=== PATIENT | female | born 1995 | race Caucasian/White ===

== ENCOUNTER 2016-10-18 22:57 | Emergency (ER) | payer OTHER ==
[~2016-10-18] VITALS: Ht 165.1 cm; Wt 76.5 kg
[~2016-10-18 22:57] MED LIST: CALC300T34 PO; IBUP800T25 PO; PERCOCET PO; PREN1TAB17 BU; PREN1TAB17 PO
[2016-10-18 23:19] VITALS: Ht 165.1 cm; Wt 76.5 kg
[2016-10-19] MEDS ORDERED: DIPHENHYDRAMINE 50 MG INJ IM ONE (02:00)
[2016-10-19] MEDS ORDERED: METHYLPREDNISOLONE 125 MG INJ IM ONE (02:00)
[2016-10-19] MEDS ORDERED: BEN25 PO (02:51)
[2016-10-19] MEDS ORDERED: FAMO-18 PO (02:52)
[2016-10-19] MEDS ORDERED: HC1C30 TOP (02:52)
[2016-10-19] MEDS ORDERED: PRED20TA PO (02:52)
[2016-10-19 03:02] VITALS: BP 133/63; PULSE 83; RESP 20; TEMP 97.9
--- NOTE | 2016-10-20 17:45 | ERD ---
ER Documentation Chief Complaint Date/Time DATE: 10/20/16 TIME: 17:42 Chief Complaint hives on whole body, 4 hours, unknown exposure HPI This patient is a 21-year-old female with no significant medical history presenting to the emergency department for rash which began about 4 hours ago after eating a new type of peanut that she has not eaten in the past. The patient has never had allergy to peanuts previously. The patient states her rash broke out around her waistline, underneath her armpits, and on her bilateral lower extremities. She describes the rash is very itchy. She has taken no medications at home for relief of her symptoms. She denies shortness of breath, wheezing, chest pain, or other significant symptoms at this time. ROS All systems reviewed and are negative except as per history of present illness. Medications Home Meds Active Scripts Famotidine* (Pepcid*) 20 Mg Tablet, 20 MG PO BID for 4 Days, #8 TAB Prov:NOEL ISAAC PA-C 10/19/16 Prednisone* (Prednisone*) 20 Mg Tab, 40 MG PO DAILY for 3 Days, #6 TAB Prov:NOEL ISAAC PA-C 10/19/16 Hydrocortisone* Topical (Hydrocortisone* Topical) 1%-28.35 Gm Cream..g., 1 APPLIC TOP Q6 Y for ITCHING, #1 TUB Prov:NOEL ISAAC PA-C 10/19/16 Diphenhydramine Hcl* (Benadryl*) 25 Mg Cap, 25 MG PO Q6, #20 CAP Prov:NOEL ISAAC PA-C 10/19/16 Oxycodone Hcl/Acetaminophen (Percocet) 1 Tab Tab, 2 TAB PO Q4H Y for PAIN LEVEL 6-10, #30 TAB 0 Refills Prov:CHAGO COFFEY MD 07/29/15 Ibuprofen* (Ibuprofen*) 800 Mg Tab, 800 MG PO Q8, #20 0 Refills Prov:CHAGO COFFEY MD 07/29/15 Reported Medications Calcium Carbonate (Tums EX) 1 Tab.chew Tab.chew, 1 TAB.CHEW PO 05/20/13 Vit-Iron Fumarate-FA ( Tablet) 1 Each Tablet, 1 EACH PO 9/13/13 Vit-Iron Fumarate-FA ( Tablet) 1 Each Tablet, 1 EACH BU DAILY 05/17/13 Allergies Allergies: Coded Allergies: No Known Allergy (Unverified , 04/22/12) PMhx/Soc Medical and Surgical Hx: pt denies Medical Hx History of Surgery: Yes (c section) Anesthesia Reaction: No Hx Neurological Disorder: No Hx Respiratory Disorders: No Hx Cardiac Disorders: No Hx Psychiatric Problems: No Hx Miscellaneous Medical Probl: No Hx Alcohol Use: No Hx Substance Use: No Hx Tobacco Use: No FmHx Noncontributory for chief complaint Physical Exam Vitals Vital Signs Date Time Temp Pulse Resp B/P Pulse Ox O2 Delivery O2 Flow Rate FiO2 10/19/16 03:02 97.9 83 20 133/63 100 Room Air 10/18/16 23:19 98.3 85 17 125/78 100 Physical Exam INITIAL VITAL SIGNS: Reviewed by me. GENERAL: Alert and interactive. No acute distress. HEAD: Head is normocephalic and atraumatic. EYES: EOMI. No scleral icterus. No conjunctival injection. ENT: Moist mucosa. NECK: Supple. Full range of motion. RESPIRATORY: Normal respiratory effort. Clear breath sounds bilaterally. No wheezing, rales, or rhonchi. No signs of respiratory distress or retractions. CV: Regular rate and rhythm. Normal S1 S2. No S3 or S4. No murmurs. ABDOMEN: Soft, non-distended, non-tender. No guarding. No rebound. No masses. EXTREMITIES: No deformity. SKIN: Macular papular rash present to the belt line area and bilateral upper portion of the lower extremities. NEUROLOGIC: Alert and oriented x 4. Speech is normal. Moves all extremities equally. No motor or sensory deficits noted. Results 24 hrs Current Medications Medications (Trade) Dose Ordered Sig/Joe Route PRN Reason Start Time Stop Time Status Last Admin Dose Admin Methylprednisolone Sodium Succinate (Solu-Medrol) 125 mg ONCE ONCE IM 10/19/16 02:00 10/19/16 03:07 DC 10/19/16 02:18 Diphenhydramine HCl (Benadryl) 25 mg ONCE ONCE IM 10/19/16 02:00 10/19/16 03:07 DC 10/19/16 02:18 Procedures/MDM 21-year-old female presents secondary to complaints of allergic rash. On physical examination the patient's vitals are within normal limits. I have very low suspicion for any respiratory distress is a patient is 100% on room air. On physical examination of the lungs there is no wheezing or signs of respiratory distress. The patient was treated in the department with Benadryl and Solu-Medrol and her rash improved rapidly. The patient was feeling much improved after treatment. The patient is stable for outpatient management with a prescription for prednisone, and diphenhydramine. The patient understands the diagnosis and plan. The patient was advised to return to the emergency department immediately for any new or worsening symptoms and she understands. I do not believe that epinephrine was indicated at the time due to no respiratory distress and only moderate urticarial rash. The patient understands the plan and diagnosis and she was stable prior to discharge. Departure Diagnosis: Primary Impression: Allergic reaction Additional Impression: Rash and nonspecific skin eruption Condition: Stable Patient Instructions: First Aid: Allergic Reactions, Self-Care for Skin Rashes Additional Instructions: Follow-up with your primary care physician within 1 week. Return to the emergency department immediately should you have any new or worsening symptoms, uncontrolled fevers, or other unexplained symptoms. Take all medications as directed. NOEL ISAAC PA-C Oct 20, 2016 17:45
== END 2016-10-19 03:07 | disposition home or self-care (01) ==
LOC: FTE 22:57 → E/R 10-19 03:07
DX: R21 Rash and other nonspecific skin eruption (principal); T78.1XXA Other adverse food reactions, not elsewhere classified, initial encounter
CPT/HCPCS: 96372; J1200; J2930; Z7502

== ENCOUNTER 2018-10-21 11:57 | Outpatient (CLI) | payer OTHER ==
[~2018-10-21] VITALS: Ht 165.1 cm; Wt 79.9 kg
[~2018-10-21 11:57] MED LIST changes: -CALC300T34 PO; -IBUP800T25 PO; -PERCOCET PO; -PREN1TAB17 PO
[2018-10-21 13:07] VITALS: BP 113/84; PULSE 72; RESP 20; Ht 165.1 cm; Wt 79.9 kg
[2018-10-21] MEDS ORDERED: PNV11TAB PO (13:09)
--- NOTE | 2018-10-21 17:02 | TRIAGE ---
OB Triage Datetime Report Generated by CPN: 10/21/2018 17:02 Datetime: 10/21/2018 17:00 Stage of : OB Triage Maternal Assessment Level of Consciousness: Fully Conscious Labor Evaluation Frequency: NONE Monitor Mode: External Resting Tone [place]: Relaxed Heart Rate FHR Baseline Rate: 135 Monitor Mode: External US Variability: Moderate 6-25 bpm Accelerations: 15X15 Decelerations: None Category: Category I Pain Assessment Pain Scale: 0 Pain Goal: 3 Vaginal Exam Membrane Status: Intact Vaginal Bleeding: None Datetime: 10/21/2018 15:30 Labor Evaluation Frequency: 0 Monitor Mode: External Resting Tone [place]: Relaxed Heart Rate FHR Baseline Rate: 130 Monitor Mode: External US FHR Baseline Changes: No Baseline Change Variability: Moderate 6-25 bpm Accelerations: 15X15 Decelerations: None Category: Category I Datetime: 10/21/2018 13:11 Labor Evaluation Frequency: 0 Monitor Mode: External Resting Tone [place]: Relaxed Heart Rate FHR Baseline Rate: 125 Monitor Mode: External US FHR Baseline Changes: No Baseline Change Variability: Moderate 6-25 bpm Accelerations: 15X15 Decelerations: None Category: Category I Pain Assessment Pain Scale: 0 Pain Presence: None/Denies Vaginal Exam Membrane Status: Intact Datetime: 10/21/2018 12:56 Stage of : OB Triage Assessment Type: Triage Time of Arrival: 10/21/2018 12:56 EGA: 33.1 Arrived By: Ambulatory Arrived From: Home Chief Complaint: heart decels Movement: Present Contractions: Denies/Absent Rupture of Membranes: Denies Vaginal Bleeding: None Vaginal Discharge: Denies Recent Sexual Intercouse: Denies Abdominal Trauma: Not Applicable Provider Notified: miri Initial Plan: nst Maternal Assessment Level of Consciousness: Fully Conscious DTR's/Clonus: DTRs 2+; No Clonus Headache: Denies Blurred Vision: No Respiratory Effort: Unlabored; Regular Rhythm; Equal Expansion Breath Sounds, Left: Clear and Equal Breath Sounds, Right: Clear and Equal Nausea/Vomiting: Denies RUQ Epigastric Pain: Denies Lower Extremities Edema: None Degree: None Upper Extremities Edema: None Facial Edema: None Temperature Route: Oral Fall Risk Assessment History of Falling: (0) No Secondary Diagnosis: (0) No Ambulatory Aid: (0) Bedrest/Nurse Assist IV Therapy: (0) No Gait: (0) Normal/Bedrest/Immobile Mental Status: (0) Oriented to Own Ability Fall Score: 0 Fall Risk Score Definition: No Risk: No action required Monitor Mode: External Monitor Mode: External US Pain Assessment Pain Scale: 0 Pain Presence: None/Denies Pain Type: N/A Pain Goal: 0 Pain Relief Measures: Comfort Measures Datetime: 10/18/2018 12:53 Labor Evaluation Frequency: 4/2hours Monitor Mode: External Duration (sec)7149: 50-70 Quality: Mild Pattern: Normal: <= 5 Contractions in 10 Minutes Resting Tone [place]: Relaxed Heart Rate FHR Baseline Rate: 135 Monitor Mode: External US FHR Baseline Changes: No Baseline Change Variability: Moderate 6-25 bpm Accelerations: 15X15 Decelerations: None Category: Category I Datetime: 10/18/2018 10:52 Fall Score: 0 Fall Risk Score Definition: No Risk: No action required Datetime: 10/18/2018 10:51 EGA: 32.5 Time Provider Notified: 10/18/2018 12:47 Provider Notified: dr miri Datetime: 10/14/2018 10:34 EGA: 32.1 Fall Score: 0 Fall Risk Score Definition: No Risk: No action required
--- NOTE | 2018-10-28 12:45 | PN ---
Triage Information Date/Time October 21, 2018 Reason for visit: Concern for Deceleration? presence of nuchal cord x 2 noted during us . for evaluation and monitoring Weeks of Gestation 33 weeks and 1 day /Para 4 para 2 Diabetes: none Hypertention: none Additional information 23-year-old with IUP at 33 weeks and 1 day here today for testing due to nuchal cord x2 and her ultrasound. She was referred by primary OB for testing. She denies any leaking of fluid, vaginal bleeding decreased movement or any other complaint. Patient is a status post x2 Objective Heart Rate: 130's Heart Rate Comments Category 1 Exam General appearance: Alert and oriented x4 does not appear to be in any acute distress Abdomen: Soft, gravid, fundal height consistent with gestational age Results/Medications Imaging Results PROCEDURE: US OB biophysical profile. CLINICAL INDICATION: decreased movements, PTL TECHNIQUE: Multiple sonographic images of the pelvis were obtained. The images were reviewed on a PACS workstation. COMPARISON: US PELVIS 10/18/2018 FINDINGS: There is a single live intrauterine gestation. Cardiac activity is present with 132 beats per minute. There is a breech presentation. The placenta is posterior. There is no evidence of placental abruption. There is a normal amount of amniotic fluid with an ROGER = 13.1 cm. Biophysical profile: movement 2/2 tone 2/2. breathing 2/2 ROGER 2/2 Total 8/8 RPTAT: AA . IMPRESSION: Normal biophysical profile. .PROCEDURE: US OB. CLINICAL INDICATION: Size and dates TECHNIQUE: Multiple sonographic images of the pelvis and gravid uterus were obtained. The images were reviewed on a PACS workstation. COMPARISON: No prior studies are available for comparison. FINDINGS: Gestation: Single live intrauterine gestation. Cardiac activity: 154 beats per minute. Presentation: Breech Placenta: Location: Posterior Appearance: No previa or abruption. Measurements: BPD = 8.4 cm, 33 weeks and 5 days HC = 30.3 cm, 33 weeks and 5 days AC = 29.3 cm, 33 weeks and 2 days FL = 6.4 cm, 33 weeks and 1 day Gestational Age: AUA estimated gestational age: 33 weeks 3 days LMP estimated gestational age: 33 weeks 1 day AUA estimated date of delivery: 12/06/18 The EFW = 2166 g, 46.2%ile based on LMP age. RPTAT: AA Disposition: Discharge Assessment/Plan IUP at 33 weeks and 1 day testing reassuring No obstetrical issue at this point History of x2 She will be scheduled by primary OB office for repeat at term Strict labor precautions kick count and follow-up with primary OB office discussed with the patient All questions were answered to patient with satisfaction Patient verbalized understanding. CANDIDA DUKES MD Oct 28, 2018 12:45
== END 2018-10-21 17:10 | disposition home or self-care (01) ==
LOC: OBT 11:57 → L-D 11:57 → OBT 17:10
PROVIDERS: ATTEND Obstetrics & Gynecology
DX: O36.8130 Decreased fetal movements, third trimester, not applicable or unspecified (principal); Z3A.33 33 weeks gestation of pregnancy
CPT/HCPCS: 76815; 76818; Z7500; G0463

== ENCOUNTER 2018-10-26 11:22 | Outpatient (CLI) | payer OTHER ==
[~2018-10-26] VITALS: Ht 165.1 cm; Wt 80.3 kg
[~2018-10-26 11:22] MED LIST changes: +PNV11TAB PO
[2018-10-26 11:47] VITALS: Ht 165.1 cm; Wt 80.3 kg
[2018-10-26 12:02] VITALS: BP 115/63; PULSE 90; RESP 18
--- NOTE | 2018-10-26 14:29 | PN ---
Triage Information Date/Time Reason for visit: Sent by Provider for NST BPP because of Cord around he neck Weeks of Gestation 33+ /Para n/a Diabetes: none Hypertention: none Objective Vital Signs Date Temp Pulse Resp B/P (MAP) Pulse Ox O2 O2 Flow FiO2 Time Delivery Rate 10/26/18 98.6 90 18 115/63 Room Air 12:02 (80) Heart Rate: 140's Contractions: None Disposition: Discharge Assessment/Plan BPP 06/16 Questions answered precautions discussed Follow up with provider PHYLLIS GALLEGOS M.D. Oct 26, 2018 14:29
--- NOTE | 2018-10-26 14:31 | TRIAGE ---
OB Triage Datetime Report Generated by CPN: 10/26/2018 14:31 Datetime: 10/26/2018 13:30 Stage of : OB Triage Maternal Assessment Level of Consciousness: Fully Conscious Labor Evaluation Frequency: NONE Monitor Mode: External Resting Tone [place]: Relaxed Heart Rate FHR Baseline Rate: 135 Monitor Mode: External US Variability: Moderate 6-25 bpm Accelerations: 15X15 Decelerations: None Category: Category I Pain Assessment Pain Scale: 0 Pain Presence: None/Denies Pain Goal: 3 Vaginal Exam Membrane Status: Intact Vaginal Bleeding: None Datetime: 10/26/2018 11:45 Assessment Type: Triage Maternal Assessment Level of Consciousness: Fully Conscious DTR's/Clonus: DTRs 2+; No Clonus Headache: Denies Blurred Vision: No Respiratory Effort: Unlabored; Regular Rhythm; Equal Expansion Breath Sounds, Left: Clear and Equal Breath Sounds, Right: Clear and Equal Nausea/Vomiting: Denies RUQ Epigastric Pain: Denies Lower Extremities Edema: None Degree: None Upper Extremities Edema: None Degree: None Facial Edema: None Fall Risk Assessment History of Falling: (0) No Secondary Diagnosis: (0) No Ambulatory Aid: (0) Bedrest/Nurse Assist IV Therapy: (0) No Gait: (0) Normal/Bedrest/Immobile Mental Status: (0) Oriented to Own Ability Fall Score: 0 Fall Risk Score Definition: No Risk: No action required Datetime: 10/26/2018 11:43 Time of Arrival: 10/26/2018 11:19 EGA: 33.6 Arrived By: Ambulatory Arrived From: Home Chief Complaint: PT HERE FOR F/U NST/BPP FOR DECELS. Movement: Present Contractions: Denies/Absent Rupture of Membranes: Denies Vaginal Bleeding: None Vaginal Discharge: Denies Recent Sexual Intercouse: Denies Abdominal Trauma: Not Applicable Patient Complaints: None Time Provider Notified: 10/26/2018 14:19 Provider Notified: NELDA Initial Plan: NST/BPP Datetime: 10/26/2018 11:35 Monitor Mode: External Monitor Mode: External US Datetime: 10/21/2018 12:56 EGA: 33.1 Patient Complaints: None Time Provider Notified: 10/21/2018 12:47 Fall Score: 0 Fall Risk Score Definition: No Risk: No action required Datetime: 10/18/2018 10:52 Fall Score: 0 Fall Risk Score Definition: No Risk: No action required Datetime: 10/18/2018 10:51 EGA: 32.5 Datetime: 10/14/2018 10:34 EGA: 32.1 Fall Score: 0 Fall Risk Score Definition: No Risk: No action required
== END 2018-10-26 14:45 | disposition home or self-care (01) ==
LOC: L-D 11:22 → OBT 11:22
PROVIDERS: ATTEND Obstetrics & Gynecology
DX: O35.8XX0 Maternal care for other (suspected) fetal abnormality and damage, not applicable or unspecified (principal); Z3A.33 33 weeks gestation of pregnancy
CPT/HCPCS: 76818; Z7500; G0463

== ENCOUNTER 2018-11-04 13:13 | Inpatient (IN) | payer OTHER ==
[~2018-11-04] VITALS: Ht 165.1 cm; Wt 79.1 kg
[2018-11-04 13:54] VITALS: Ht 165.1 cm; Wt 79.1 kg
[2018-11-04] MEDS ORDERED: TERBUTALINE 1 MG/ML INJ SC ONE ×2 (14:30→17:30)
[2018-11-04] MEDS ORDERED: LACTATED RINGER'S 1,000 ML IV ONE (14:30)
[2018-11-04 15:40] VITALS: BP 116/55; RESP 20
--- NOTE | 2018-11-04 17:21 | HP ---
Date/Time of Note Date/Time of Note DATE: 11/04/18 TIME: 17:19 OB - History Hx of Present Free Text/Dictation 23-year-old female 4 para 2 AB 1 at 35+ weeks gestation was 17 because of left-sided leg pain and noticed she has persistent uterine contraction Estimated Due Date: Oct 10, 2018 : 4 Para: 2 Spontaneous : 1 Care: Good Care Ultrasounds: Normal mid trimester US Obstetrical Complications: None Medical Complications: None Past Family/Social History * Past Medical, Surgical, Family and Obstetric Histories reviewed from chart. OB Admission Exam Vital Signs Vital Signs Vital Signs Date Temp Pulse Resp B/P (MAP) Pulse Ox O2 O2 Flow FiO2 Time Delivery Rate 11/04/18 98.6 20 116/55 Room Air 15:40 (75) Physical Exam HEENT: WNL Cervical Dilatation: None Effacement: 0% Station: -3 Membranes: Intact Heart Rate: 140's Accelerations: Accelerations Present Decelerations: No Decelerations Varibility: Marked Contractions on Admission: < 5 Minutes Apart Date/Time Contractions Began: ? Frequency of Contractions: ? Duration: ? Intensity: Mild OB Assessment/Plan Reason for admission: labor Other Assessment: 35+ weeks gestation contractions DVT was ruled out Other plan: Will start on p.o. nifedipine Patient had 1 dose of subcutaneous terbutaline which may be related pleaded Provide steroids CHAGO COFFEY MD Nov 04, 2018 17:21
[2018-11-04] MEDS ORDERED: BETAMET NA PHOS/AC(6 MG/ML) 2 ML INJ SYG IM ONE (17:30)
[2018-11-04] MEDS ORDERED: DEXAMETHASONE 4 MG/ML 5 ML INJ IM SCH (18:00)
[2018-11-04] MEDS: NIFEdipine 10 MG CAP PO SCH (18:33)
[2018-11-04] MEDS: LACTATED RINGER'S 1,000 ML IV SCH (18:37)
[2018-11-04] MEDS: DEXAMETHASONE 4 MG/ML 5 ML INJ IM SCH (18:59)
--- NOTE | 2018-11-04 19:30 | TRIAGE ---
OB Triage Datetime Report Generated by CPN: 11/04/2018 19:30 Datetime: 11/04/2018 19:20 Stage of : Antepartum Assessment Type: Ongoing Assessment Maternal Assessment Level of Consciousness: Fully Conscious DTR's/Clonus: DTRs 2+; No Clonus Headache: Denies Blurred Vision: No Respiratory Effort: Unlabored; Regular Rhythm; Equal Expansion Breath Sounds, Left: Clear and Equal Breath Sounds, Right: Clear and Equal Nausea/Vomiting: Denies RUQ Epigastric Pain: Denies Lower Extremities Edema: None Degree: None Upper Extremities Edema: None Degree: None Facial Edema: None Temperature Route: Oral Fall Risk Assessment History of Falling: (0) No Secondary Diagnosis: (0) No Ambulatory Aid: (0) Bedrest/Nurse Assist IV Therapy: (20) Yes Gait: (0) Normal/Bedrest/Immobile Mental Status: (0) Oriented to Own Ability Fall Score: 20 Fall Risk Score Definition: No Risk: No action required Datetime: 11/04/2018 18:03 Assessment Type: Admission Assessment Vaginal Bleeding: None Maternal Assessment Level of Consciousness: Fully Conscious DTR's/Clonus: DTRs 2+; No Clonus Headache: Denies Blurred Vision: No Respiratory Effort: Unlabored; Regular Rhythm; Equal Expansion Breath Sounds, Left: Clear and Equal Breath Sounds, Right: Clear and Equal Nausea/Vomiting: Denies RUQ Epigastric Pain: Denies Lower Extremities Edema: None Degree: None Upper Extremities Edema: None Degree: None Facial Edema: None Fall Risk Assessment History of Falling: (0) No Secondary Diagnosis: (0) No Ambulatory Aid: (0) Bedrest/Nurse Assist IV Therapy: (20) Yes Gait: (0) Normal/Bedrest/Immobile Mental Status: (0) Oriented to Own Ability Fall Score: 20 Fall Risk Score Definition: No Risk: No action required Labor Evaluation Frequency: IRREG Duration (sec)2399: 60 Quality: Mild Pattern: Normal: <= 5 Contractions in 10 Minutes Resting Tone White: Relaxed Heart Rate FHR Baseline Rate: 130 Variability: Moderate 6-25 bpm Accelerations: 15X15 Decelerations: None Category: Category I Pain Assessment Pain Scale: 0 Pain Presence: None/Denies Datetime: 11/04/2018 16:40 Labor Evaluation Frequency: 0 Monitor Mode: External Pattern: Normal: <= 5 Contractions in 10 Minutes Heart Rate FHR Baseline Rate: 130 Monitor Mode: External US FHR Baseline Changes: No Baseline Change Variability: Moderate 6-25 bpm Accelerations: 15X15 Decelerations: None Category: Category I Datetime: 11/04/2018 15:43 Stage of : OB Triage Temperature Route: Oral Labor Evaluation Frequency: x1 Monitor Mode: External Quality: Mild Pattern: Normal: <= 5 Contractions in 10 Minutes Resting Tone White: Relaxed Heart Rate FHR Baseline Rate: 130 Monitor Mode: External US FHR Baseline Changes: No Baseline Change Variability: Moderate 6-25 bpm Accelerations: 15X15 Decelerations: None Category: Category I Pain Assessment Pain Scale: 0 Pain Presence: None/Denies Pain Goal: 0 Datetime: 11/04/2018 15:31 Time of Arrival: 11/04/2018 13:09 EGA: 35.1 Arrived By: Ambulatory Arrived From: Office Chief Complaint: Bilateral lower extremity pain Movement: Present Contractions: Occasional Rupture of Membranes: Denies Vaginal Bleeding: Normal Show Vaginal Discharge: Denies Recent Sexual Intercouse: Denies Abdominal Trauma: Not Applicable Patient Complaints: Back Pain Time Provider Notified: 11/04/2018 14:24 Provider Notified: Yony Initial Plan: NST, BPP/ROGER, Venous ultrasound, terbutaline 0.25mg x1 subQ, IV hydration, UA and uri ne culture Datetime: 11/04/2018 15:00 Labor Evaluation Frequency: 2-4 Monitor Mode: External Duration (sec)2399: 50-80 Quality: Mild Pattern: Normal: <= 5 Contractions in 10 Minutes Resting Tone White: Relaxed Heart Rate FHR Baseline Rate: 125 Monitor Mode: External US FHR Baseline Changes: No Baseline Change Variability: Moderate 6-25 bpm Accelerations: 15X15 Decelerations: None Category: Category I Pain Presence: None/Denies Datetime: 11/04/2018 14:01 Temperature Route: Oral Datetime: 11/04/2018 13:40 Assessment Type: Triage Maternal Assessment Level of Consciousness: Fully Conscious DTR's/Clonus: DTRs 2+; No Clonus Headache: Denies Blurred Vision: No Respiratory Effort: Unlabored; Regular Rhythm; Equal Expansion Breath Sounds, Left: Clear and Equal Breath Sounds, Right: Clear and Equal Nausea/Vomiting: Denies RUQ Epigastric Pain: Denies Lower Extremities Edema: None Degree: None Upper Extremities Edema: None Degree: None Facial Edema: None Fall Risk Assessment History of Falling: (0) No Secondary Diagnosis: (0) No Ambulatory Aid: (0) Bedrest/Nurse Assist IV Therapy: (0) No Gait: (0) Normal/Bedrest/Immobile Mental Status: (0) Oriented to Own Ability Fall Score: 0 Fall Risk Score Definition: No Risk: No action required Datetime: 10/26/2018 11:45 Fall Score: 0 Fall Risk Score Definition: No Risk: No action required Datetime: 10/26/2018 11:43 EGA: 33.6 Datetime: 10/21/2018 12:56 EGA: 33.1 Fall Score: 0 Fall Risk Score Definition: No Risk: No action required Datetime: 10/18/2018 10:52 Fall Score: 0 Fall Risk Score Definition: No Risk: No action required Datetime: 10/18/2018 10:51 EGA: 32.5 Datetime: 10/14/2018 10:34 EGA: 32.1 Fall Score: 0 Fall Risk Score Definition: No Risk: No action required
[2018-11-05] MEDS: NIFEdipine 10 MG CAP PO SCH ×4 (00:08→17:46)
[2018-11-05] MEDS: LACTATED RINGER'S 1,000 ML IV SCH ×2 (00:37→09:32)
[2018-11-05] MEDS ORDERED: AL HYDROX/MG HYDROX/SIMETH 30 ML CUP PO ONE ×2 (01:00→13:56)
[2018-11-05] MEDS: DEXAMETHASONE 4 MG/ML 5 ML INJ IM SCH ×2 (06:03→18:14)
--- NOTE | 2018-11-05 14:30 | DS ---
Date/Time of Note Date/Time of Note DATE: 11/05/18 TIME: 14:28 Obstetrical Discharge Record Final Diagnosis Final Diagnosis: not delivered Other Final Diagnosis contractions at 35+ week Complications Labor Tocolytics: Terbutaline, Other (Nifedipine) Condition on Discharge Physical Assessment Voiding: Yes Bowel Movement: Yes Breast: Soft, non-tender, Filling Fundus: Other () Abdomen and Incision: Abdomen is gravid fundal height is 36 heart tones are reactive On electronic monitoring minimal or no uterine contractions seen Calf Tenderness: No Patient Condition: Good (Seems like contractions or resolve on nifedipine, will DC home on nifedipine p.o.) CHAGO COFFEY MD Nov 05, 2018 14:30
--- NOTE | 2018-11-05 14:31 | PD.PPDC ---
[employer]GER [employer] Discharge Instruction Provider Information Physician Information 23-year-old female admitted for contractions at 35 weeks which were successfully stopped Diagnosis [id number] Final Diagnosis: [id number] contractions Condition [id number] Patient Condition: [id number] Good (Seems like contractions or resolve on nifedipine, will DC home on nifedipine p.o.) Diet [id number] Diet: [id number] Resume Regular Diet Activity/Restrictions [id number] Activity: [id number] Bedrest May Shower [id number] Restrictions: [id number] No Exercising Nothing in the Vagina Follow-up Follow-up with Physician: 5, Day/Days (In clinic) Return to clinic for Comment: Refer back to OB triage for persistent uterine CHAGO COFFEY MD Nov 05, 2018 14:31
[2018-11-05] MEDS ORDERED: NIFE10CA PO (14:33)
[2018-11-05] MEDS ORDERED: BETAMET NA PHOS/AC(6 MG/ML) 2 ML INJ SYG IM ONE (17:30)
== END 2018-11-05 18:15 | disposition home or self-care (01) | DRG 833 ==
LOC: OBT 13:13 → L-D 13:13 → OBT 17:00 → L-D 17:00
PROVIDERS: ADMIT Obstetrics & Gynecology; ATTEND Obstetrics & Gynecology
DX: O47.03 False labor before 37 completed weeks of gestation, third trimester (principal)
CPT/HCPCS: 76818; 81001; 81003; 84112; 87086; 93970; G0463; J1100; J3105; J7120

== ENCOUNTER 2018-11-23 23:13 | Outpatient (CLI) | payer OTHER ==
[~2018-11-23] VITALS: Ht 165.1 cm; Wt 81.0 kg
[~2018-11-23 23:13] MED LIST changes: +NIFE10CA PO
[2018-11-24 01:02] VITALS: BP 118/57; PULSE 82; RESP 18; Ht 165.1 cm; Wt 81.0 kg
[2018-11-24] MEDS ORDERED: CEFTRIAXONE 1 GM INJ IM ONE (04:00)
--- NOTE | 2018-11-24 09:17 | TRIAGE ---
OB Triage Datetime Report Generated by CPN: 11/24/2018 09:17 Datetime: 11/24/2018 00:09 Assessment Type: Triage Maternal Assessment Level of Consciousness: Fully Conscious DTR's/Clonus: DTRs 2+; No Clonus Headache: Denies Blurred Vision: No Respiratory Effort: Unlabored; Regular Rhythm; Equal Expansion Breath Sounds, Left: Clear and Equal Breath Sounds, Right: Clear and Equal Nausea/Vomiting: Denies RUQ Epigastric Pain: Denies Lower Extremities Edema: None Upper Extremities Edema: None Facial Edema: None Fall Risk Assessment History of Falling: (0) No Secondary Diagnosis: (0) No Ambulatory Aid: (0) Bedrest/Nurse Assist IV Therapy: (0) No Gait: (0) Normal/Bedrest/Immobile Mental Status: (0) Oriented to Own Ability Fall Score: 0 Fall Risk Score Definition: No Risk: No action required Datetime: 11/24/2018 00:08 Time of Arrival: 11/23/2018 23:10 EGA: 37.5 Arrived By: Wheelchair Arrived From: Home Chief Complaint: BLOOD WITH URINE, FREQUENT URINATION WITH PAIN Movement: Present Contractions: Denies/Absent Rupture of Membranes: Denies Vaginal Discharge: Denies Additional Patient Complaints: MEDHAT C/S ON 12/03/18 Time Provider Notified: 11/24/2018 00:30 Provider Notified: HADADIAN Initial Plan: EFM, CALL MD FOR ORDERS Datetime: 11/05/2018 18:00 Stage of : Antepartum Datetime: 11/05/2018 17:22 Labor Evaluation Frequency: occasional Monitor Mode: External Duration (sec)2399: 20 sec Quality: Mild Pattern: Normal: <= 5 Contractions in 10 Minutes Resting Tone Leota: Relaxed Heart Rate FHR Baseline Rate: 125 Monitor Mode: External US FHR Baseline Changes: No Baseline Change Variability: Moderate 6-25 bpm Accelerations: 15X15 Decelerations: None Category: Category I Datetime: 11/05/2018 16:04 Stage of : Antepartum Temperature Route: Oral Pain Assessment Pain Scale: 0 Pain Presence: None/Denies Pain Type: N/A Datetime: 11/05/2018 15:30 Labor Evaluation Frequency: x1 Monitor Mode: External Duration (sec)2399: 60 Quality: Mild Resting Tone Leota: Relaxed Heart Rate FHR Baseline Rate: 125 Monitor Mode: External US FHR Baseline Changes: No Baseline Change Variability: Moderate 6-25 bpm Accelerations: 15X15 Decelerations: None Category: Category I Datetime: 11/05/2018 14:31 Labor Evaluation Frequency: x1 Monitor Mode: External Duration (sec)2399: 50 Quality: Mild Resting Tone Leota: Relaxed Heart Rate FHR Baseline Rate: 125 Monitor Mode: External US FHR Baseline Changes: No Baseline Change Variability: Moderate 6-25 bpm Accelerations: 15X15 Decelerations: None Category: Category I Datetime: 11/05/2018 13:30 Labor Evaluation Frequency: x3 Monitor Mode: External Duration (sec)2399: 40 Quality: Mild Resting Tone Leota: Relaxed Heart Rate FHR Baseline Rate: 120 Monitor Mode: External US FHR Baseline Changes: No Baseline Change Variability: Moderate 6-25 bpm Accelerations: 15X15 Decelerations: None Category: Category I Datetime: 11/05/2018 12:29 Labor Evaluation Frequency: x4 Monitor Mode: External Duration (sec)2399: 40-60 Quality: Mild Resting Tone Leota: Relaxed Heart Rate FHR Baseline Rate: 115 Monitor Mode: External US FHR Baseline Changes: No Baseline Change Variability: Moderate 6-25 bpm Accelerations: 15X15 Decelerations: None Category: Category I Datetime: 11/05/2018 11:43 Stage of : Antepartum Temperature Route: Oral Pain Assessment Pain Scale: 0 Pain Presence: None/Denies Pain Type: N/A Datetime: 11/05/2018 11:30 Labor Evaluation Frequency: x1 Monitor Mode: External Duration (sec)2399: 40 Quality: Mild Resting Tone Leota: Relaxed Heart Rate FHR Baseline Rate: 115 Monitor Mode: External US FHR Baseline Changes: No Baseline Change Variability: Moderate 6-25 bpm Accelerations: 15X15 Decelerations: None Category: Category I Datetime: 11/05/2018 10:31 Labor Evaluation Frequency: x8 Monitor Mode: External Duration (sec)2399: 50-70 Quality: Mild Resting Tone Leota: Relaxed Heart Rate FHR Baseline Rate: 120 Monitor Mode: External US FHR Baseline Changes: No Baseline Change Variability: Moderate 6-25 bpm Accelerations: 15X15 Decelerations: Variable Category: Category II Datetime: 11/05/2018 08:31 Labor Evaluation Frequency: x5 Monitor Mode: External Duration (sec)2399: 40-80 Quality: Mild Resting Tone Leota: Relaxed Heart Rate FHR Baseline Rate: 125 Monitor Mode: External US FHR Baseline Changes: No Baseline Change Variability: Moderate 6-25 bpm Accelerations: 15X15 Decelerations: None Category: Category I Datetime: 11/05/2018 08:30 Labor Evaluation Frequency: x2 Monitor Mode: External Duration (sec)2399: 40-80 Quality: Mild Resting Tone Leota: Relaxed Heart Rate FHR Baseline Rate: 125 Monitor Mode: External US FHR Baseline Changes: No Baseline Change Variability: Moderate 6-25 bpm Accelerations: 15X15 Decelerations: None Category: Category I Datetime: 11/05/2018 07:44 Assessment Type: Ongoing Assessment Maternal Assessment Level of Consciousness: Fully Conscious DTR's/Clonus: DTRs 2+; No Clonus Headache: Denies Blurred Vision: No Respiratory Effort: Unlabored; Regular Rhythm; Equal Expansion Breath Sounds, Left: Clear and Equal Breath Sounds, Right: Clear and Equal Nausea/Vomiting: Denies RUQ Epigastric Pain: Denies Lower Extremities Edema: None Degree: None Upper Extremities Edema: None Degree: None Facial Edema: None Fall Risk Assessment History of Falling: (0) No Secondary Diagnosis: (0) No Ambulatory Aid: (0) Bedrest/Nurse Assist IV Therapy: (20) Yes Gait: (0) Normal/Bedrest/Immobile Mental Status: (0) Oriented to Own Ability Fall Score: 20 Fall Risk Score Definition: No Risk: No action required Datetime: 11/05/2018 07:34 Stage of : Antepartum Temperature Route: Oral Labor Evaluation Frequency: x2 Monitor Mode: External Duration (sec)2399: 50 Quality: Mild Resting Tone Leota: Relaxed Heart Rate FHR Baseline Rate: 120 Monitor Mode: External US FHR Baseline Changes: No Baseline Change Variability: Moderate 6-25 bpm Accelerations: 15X15 Decelerations: None Category: Category I Pain Assessment Pain Scale: 0 Pain Presence: None/Denies Pain Type: N/A Pain Assessment Comments: pt denies feeling UCs Datetime: 11/05/2018 07:00 Stage of : Antepartum Labor Evaluation Frequency: IRREGULAR Monitor Mode: External Duration (sec)2399: 60-100 Quality: Mild Resting Tone Leota: Relaxed Heart Rate FHR Baseline Rate: 125 Monitor Mode: External US Variability: Moderate 6-25 bpm Accelerations: 15X15 Datetime: 11/05/2018 06:00 Stage of : Antepartum Labor Evaluation Frequency: IRREGULAR Monitor Mode: External Duration (sec)2399: 60-100 Quality: Mild Resting Tone Leota: Relaxed Heart Rate FHR Baseline Rate: 125 Monitor Mode: External US Variability: Moderate 6-25 bpm Accelerations: 15X15 Datetime: 11/05/2018 05:00 Stage of : Antepartum Labor Evaluation Frequency: X3 IN ONE HOUR Monitor Mode: External Duration (sec)2399: 60-120 Quality: Mild Resting Tone Leota: Relaxed Heart Rate FHR Baseline Rate: 125 Monitor Mode: External US Variability: Moderate 6-25 bpm Accelerations: 15X15 Datetime: 11/05/2018 04:00 Stage of : Antepartum Labor Evaluation Frequency: IRRITABILITY Monitor Mode: External Quality: Mild Resting Tone Leota: Relaxed Heart Rate FHR Baseline Rate: 130 Monitor Mode: External US Variability: Moderate 6-25 bpm Accelerations: 15X15 Datetime: 11/05/2018 03:00 Stage of : Antepartum Labor Evaluation Frequency: NONE Monitor Mode: External Resting Tone Leota: Relaxed Heart Rate FHR Baseline Rate: 135 Monitor Mode: External US Variability: Moderate 6-25 bpm Accelerations: 15X15 Datetime: 11/05/2018 02:00 Stage of : Antepartum Labor Evaluation Frequency: NONE Monitor Mode: External Resting Tone Leota: Relaxed Heart Rate FHR Baseline Rate: 145 Monitor Mode: External US Variability: Moderate 6-25 bpm Accelerations: 15X15 Datetime: 11/05/2018 01:08 Temperature Route: Oral Datetime: 11/05/2018 01:00 Stage of : Antepartum Labor Evaluation Frequency: NONE Monitor Mode: External Resting Tone Leota: Relaxed Heart Rate FHR Baseline Rate: 145 Monitor Mode: External US Variability: Moderate 6-25 bpm Accelerations: 15X15 Decelerations: Variable Datetime: 11/05/2018 00:00 Stage of : Antepartum Labor Evaluation Frequency: NONE Monitor Mode: External Resting Tone Leota: Relaxed Heart Rate FHR Baseline Rate: 125 Monitor Mode: External US Variability: Moderate 6-25 bpm Accelerations: 15X15 Decelerations: None Datetime: 11/04/2018 23:00 Stage of : Antepartum Labor Evaluation Frequency: NONE Monitor Mode: External Resting Tone Leota: Relaxed Heart Rate FHR Baseline Rate: 125 Monitor Mode: External US Variability: Moderate 6-25 bpm Accelerations: 15X15 Decelerations: None Datetime: 11/04/2018 22:00 Stage of : Antepartum Labor Evaluation Frequency: NONE Monitor Mode: External Resting Tone Leota: Relaxed Heart Rate FHR Baseline Rate: 145 Monitor Mode: External US Variability: Moderate 6-25 bpm Accelerations: 15X15 Decelerations: None Comments: SOME LOSS OF CONTACT DUE TO PT SWITCHING SIDES Datetime: 11/04/2018 21:00 Stage of : Antepartum Labor Evaluation Frequency: NONE Monitor Mode: External Resting Tone Leota: Relaxed Heart Rate FHR Baseline Rate: 135 Monitor Mode: External US Variability: Moderate 6-25 bpm Accelerations: 15X15 Decelerations: None Comments: SOME LOSS OF CONTACT; PT SITTING UP TO EAT Datetime: 11/04/2018 20:00 Stage of : Antepartum Labor Evaluation Frequency: NONE Monitor Mode: External Resting Tone Leota: Relaxed Heart Rate FHR Baseline Rate: 135 Monitor Mode: External US Variability: Moderate 6-25 bpm Accelerations: 15X15 Decelerations: None Category: Category I Datetime: 11/04/2018 19:20 Fall Score: 20 Fall Risk Score Definition: No Risk: No action required Datetime: 11/04/2018 19:00 Labor Evaluation Frequency: 0 Monitor Mode: External Resting Tone Leota: Relaxed Heart Rate FHR Baseline Rate: 140 Monitor Mode: External US FHR Baseline Changes: No Baseline Change Variability: Moderate 6-25 bpm Accelerations: 15X15 Decelerations: None Category: Category I Datetime: 11/04/2018 18:03 Fall Score: 20 Fall Risk Score Definition: No Risk: No action required Datetime: 11/04/2018 15:31 EGA: 35.0 Datetime: 11/04/2018 13:40 Fall Score: 0 Fall Risk Score Definition: No Risk: No action required Datetime: 10/26/2018 11:45 Fall Score: 0 Fall Risk Score Definition: No Risk: No action required Datetime: 10/26/2018 11:43 EGA: 33.5 Datetime: 10/21/2018 12:56 EGA: 33.0 Fall Score: 0 Fall Risk Score Definition: No Risk: No action required Datetime: 10/18/2018 10:52 Fall Score: 0 Fall Risk Score Definition: No Risk: No action required Datetime: 10/18/2018 10:51 EGA: 32.4 Datetime: 10/14/2018 10:34 EGA: 32.0 Fall Score: 0 Fall Risk Score Definition: No Risk: No action required
--- NOTE | 2018-12-05 13:19 | PN ---
Triage Information Date/Time Reason for visit: Urinary frequency and pain with urination Weeks of Gestation 37 weeks and 6 days /Para 4 para 2011 Diabetes: none Hypertention: none Objective Heart Rate: 130's Contractions: None Results/Medications Imaging Results Cardiac activity is present with 136 beats per minute. There is a breech presentation. The placenta is posterior. Biophysical profile: movement 2/2 tone 2/2. breathing 2/2 ROGER 2/2, amniotic fluid index measures 14.7 cm Total 04/14 IMPRESSION: Biophysical profile measures 04/14. Disposition: Discharge Assessment/Plan 23 years old with single intrauterine at 37 weeks and 6 days with a RODRIGUEZ of 12/09/2018 complaining of urinary frequency and pain with urination she has history of 2 previous delivery. She states good movement. She denies nausea, vomiting, shortness of breath, chest pain, abdominal pain, headache, visual changes, vaginal bleeding or LOF. -FHR: No sign of metabolic acidosis- Category I -Contractions: None -Ultrasound performed as noted above -Urinalyses with 25 WBC and 3+ leukocyte esterase. CBC is within normal limit. Urine culture with sensitivity performed. Rocephin 1 g IM given. Prescription for cephalexin 500 mg every 8 hours given -Symptoms and sign of labor, preeclampsia, kick count discussed with patient, she voiced understanding. All of her questions answered. -Patient was discharged home in stable condition with the appropriate discharge instructions provided. I would like patient to have close follow-up with her primary physician or outpatient clinic in 1-2 days or return to triage for worsening symptoms or any other urgent concerns. Late entry note. Patient seen on 11/23/2018 MILO CISNEROS Dec 05, 2018 13:19
== END 2018-11-24 04:30 | disposition home or self-care (01) ==
LOC: OBT 23:13 → L-D 23:14 → OBT 11-24 04:30
PROVIDERS: ATTEND Obstetrics & Gynecology
DX: O26.893 Other specified pregnancy related conditions, third trimester (principal); Z3A.37 37 weeks gestation of pregnancy; R10.2 Pelvic and perineal pain; R30.0 Dysuria
CPT/HCPCS: 76818; 81001; 85025; 87086; J0696; Z7500; Z7610; A4310; G0463

== ENCOUNTER 2018-12-03 12:30 | Inpatient (IN) | payer OTHER ==
[~2018-12-03] VITALS: Ht 165.1 cm; Wt 81.0 kg
[~2018-12-03 12:30] MED LIST changes: -NIFE10CA PO; +OXYTOCIN 30 UNITS/LR 500 ML BAG IV ONE
[2018-12-03 13:02] VITALS: BP 113/57; PULSE 80; RESP 18
[2018-12-03 13:59] VITALS: Ht 165.1 cm; Wt 81.0 kg
[2018-12-03] MEDS ORDERED: MISOPROSTOL 200 MCG TAB PR PRN ×2 (14:00→20:00)
[2018-12-03] MEDS ORDERED: OXYTOCIN 30 UNITS/LR 500 ML IV PRN ×2 (14:00→20:00)
[2018-12-03] MEDS ORDERED: LIDOCAINE 1% (MPF) 30 ML INJ INJ PRN (14:00)
[2018-12-03] MEDS ORDERED: CARBOPROST 250 MCG INJ IM PRN ×2 (14:00→20:00)
[2018-12-03] MEDS ORDERED: OXYTOCIN 30 UNITS/LR 500 ML IV SCH (14:00)
[2018-12-03] MEDS ORDERED: METHYLERGONOVINE 0.2 MG INJ IM PRN ×2 (14:00→20:00)
[2018-12-03] MEDS: LACTATED RINGER'S 1,000 ML IV SCH ×2 (14:21→14:25)
--- NOTE | 2018-12-03 14:28 | PREAC ---
Date/Time of Note Date/Time of Note DATE: 12/03/18 TIME: 14:25 Anesthesia Eval and Record Evaluation Time Pre-Procedure Interview DATE: 12/03/18 TIME: 14:25 Age 23 Sex female NPO: 8 hrs Preoperative diagnosis IUP Planned procedure Repeat Csection Past Medical History Past Medical History: None Surgery & Anesthesia Issues No known issue Meds Anticoagulation: No Beta Landon within 24 hr: No Reason Beta Landon not given: Pt. not on B-Landon Reported Medications [id number] ( ) 1 Each Tablet, 1 TAB PO DAILY, TAB 10/21/18 Vit-Iron Fumarate-FA ( Tablet) 1 Each Tablet, 1 EACH BU DAILY 05/17/13 Current Medications Lactated Ringer's 1,000 ml @ 125 mls/hr Q8H IV Last administered on 12/03/18at 14:21; Admin Dose 125 MLS/HR; Start 12/03/18 at 13:50 Lidocaine (Xylocaine 1% (Mpf)) 30 ml ONCE PRN INJ .EPISIOTOMY; Start 12/03/18 at 14:00 Oxytocin/Lactated Ringer's 500 ml @ 500 mls/hr ONCE POST IV ; Start 12/03/18 at 14:00 Oxytocin/Lactated Ringer's 500 ml @ 125 mls/hr POST IV ; Start 12/03/18 at 14:00 Oxytocin/Lactated Ringer's 500 ml @ 0 mls/hr ONCE PRN IV .VAGINAL BLEEDING; Start 12/03/18 at 14:00 Methylergonovine Maleate (Methergine) 0.2 mg ONCE PRN IM .VAGINAL BLEEDING; Start 12/03/18 at 14:00 Carboprost Tromethamine (Hemabate) 250 mcg ONCE PRN IM .VAGINAL BLEEDING; Start 12/03/18 at 14:00 Misoprostol (Cytotec) 1,000 mcg ONCE PRN GA .VAGINAL BLEEDING; Start 12/03/18 at 14:00 Cefazolin Sodium/ Dextrose 50 ml @ 100 mls/hr ONCE IVPB ; Start 12/03/18 at 14:30 Azithromycin 250 ml @ 250 mls/hr ONCE IV Last administered on 12/03/18at 14:22; Admin Dose 250 MLS/HR; Start 12/03/18 at 14:30 Meds reviewed: Yes Allergies Coded Allergies: peanut (Verified Allergy, Unknown, 10/14/18) Allergies Reviewed: Yes Labs/Studies Labs Reviewed: Reviewed by anesthesiologist test: Positive Studies: ECG Pre-procedure Exam Last vitals Vital Signs Date Temp Pulse Resp B/P (MAP) Pulse Ox O2 O2 Flow FiO2 Time Delivery Rate 12/03/18 98.5 80 18 113/57 Room Air 13:02 (75) Airway: Adequate mouth opening, Adequate thyromental dist Mallampati: Mallampati II Teeth: Normal Lung: Normal Heart: Normal ASA Physical Status ASA physical status: 2 Emergency: None Planned Anesthetic Neuraxial: Spinal Pre-operative Attestations Prior to commencing anesthesia and surgery, the patient was re-evaluated, there was verification of: *The patient's identity *The results of appropriate recent lab work and preoperative vital signs *The above evaluation not changing prior to induction *Anesthetic plan, risk benefits, alternative and complications discussed with patient/family; questions answered; patient/family understands, accepts and wishes to proceed. FRANCES YANEZ MD Dec 03, 2018 14:28
[2018-12-03] MEDS ORDERED: AZITHROMYCIN 500MG/NS (PMX) 250 ML IV SCH (14:30)
[2018-12-03] MEDS ORDERED: CEFAZOLIN 2 GM/50 ML (PMX) 50 ML IVPB SCH ×3 (14:30→21:30)
[2018-12-03] MEDS ORDERED: morphine SULFATE/PF (10 MG/10 ML) INJ ONE (14:53)
[2018-12-03] MEDS ORDERED: OXYTOCIN 10 UNIT INJ ONE (14:54)
[2018-12-03] MEDS ORDERED: ONDANSETRON 4 MG INJ ONE (14:54)
[2018-12-03] MEDS ORDERED: PHENYLephrine 10 MG INJ ONE (14:55)
[2018-12-03] MEDS ORDERED: FENTAnyl 50 MCG/ML VIAL ONE (15:37)
[2018-12-03] MEDS ORDERED: KETOROLAC 30 MG INJ ONE (15:58)
--- NOTE | 2018-12-03 16:14 | PAC ---
Date/Time of Note Date/Time of Note DATE: 12/03/18 TIME: 16:13 Post-Anesthesia Notes Post-Anesthesia Note Last documented vital signs Vital Signs Date Temp Pulse Resp B/P (MAP) Pulse Ox O2 O2 Flow FiO2 Time Delivery Rate 12/03/18 98.5 80 18 113/57 Room Air 13:02 (75) Activity: WNL Respiratory function: WNL Cardiovascular function: WNL Mental status: Baseline Pain reasonably controlled: Yes Hydration appropriate: Yes Nausea/Vomiting absent: Yes Comments BP:112/56, P:76, Spo2:100%, T:98,8 FRANCES YANEZ MD Dec 03, 2018 16:14
--- NOTE | 2018-12-03 16:17 | HP ---
Date/Time of Note Date/Time of Note DATE: 12/03/18 TIME: 16:14 OB - History Hx of Present Free Text/Dictation 23-year-old female 4 para 2 AB 1 at 39 weeks gestation admitted for repeat section Last Menstrual Period: January 14, 2018 Estimated Due Date: Dec 09, 2018 : 4 Para: 2 Therapeutic : 1 Care: Good Care Ultrasounds: Normal mid trimester US Medical Complications: Other (Previous x2) Past Family/Social History * Past Medical, Surgical, Family and Obstetric Histories reviewed from chart. Blood Type: O+ Rubella: immune RPR/VDRL: Negative GBS Status: Negative HBsAG: Negative OB Admission Exam Vital Signs Vital Signs Vital Signs Date Temp Pulse Resp B/P (MAP) Pulse Ox O2 O2 Flow FiO2 Time Delivery Rate 12/03/18 98.5 80 18 113/57 Room Air 13:02 (75) Physical Exam HEENT: WNL Heart: Rhythm Normal Lungs: Clear, Equal Abdomen: WNL Extremities: Normal Reflexes: Normal Cervical Dilatation: None Effacement: 0% Station: -3 Membranes: Intact Heart Rate: 140's Accelerations: Accelerations Present Decelerations: No Decelerations Varibility: Marked Contractions on Admission: None Last 72 hours Lab Results CBC & BMP 12/03/18 13:35 Liver Function Test 12/03/18 13:35 Alanine Aminotransferase (ALT/SGPT) 22 Albumin 3.4 Alkaline Phosphatase 214 H Aspartate Amino Transf (AST/SGOT) 24 Direct Bilirubin 0.00 Total Protein 6.3 OB Assessment/Plan Other Assessment: Term gestation Previous x2 Other plan: Repeat section CHAGO COFFEY MD Dec 03, 2018 16:17
--- NOTE | 2018-12-03 16:20 | OPR ---
Operative Report Planned Procedure Free Text/Dictation Elective repeat section Procedure date Dec 03, 2018 Procedure(s) Repeat section Performed by see signature line Yard Motor Operator: ASHWINI ALLEN MD Anesthesiologist: FRANCES YANEZ MD Pre-procedure diagnosis Term gestation Previous section x2 [id number] Anesthesia Type: [id number] spinal Post-Procedure Post-procedure diagnosis Status post repeat Findings Live Baby in macario breech presentation Clear amniotic fluid Normal-appearing right and left fallopian tube Estimated Blood Loss: 500 - 600 mls Specimen(s) none Grafts/Implant(s) none Complication(s) none Pt Condition post procedure: stable Disposition: PACU Procedure Description Under satisfactory anaesthesia a Pfannenstiel incision was made two fingerbreadth above and parallel to the symphysis of pubis around the previous scar and previous scar was removed Incision was extended laterally to the border of the Recti muscles on either sides. Incision was carried down with sharp and blunt dissection until fascia was reached. Anterior Recti muscle fascia was incised in mid portion and incision extended laterally to the border of skin incision. Fascia was mobilized from muscle superiorly and Recti muscles were from midline using sharp and blunt dissection. Peritoneum was visualized; Avoiding bowel and bladder it was incised . Incision was extended superiorly and inferiorly. Bladder blade was placed. Posterior peritoneum covering the lower segment of the uterus and lower segment of the uterus were incised.Low transverse uterine incision was made on lower segment of the uterus. Incision extended laterally to the border of Round Lig. on either sides and baby was delivered via total breech extraction without any difficulty. Amniotic fluid appeared clear. Cord blood was obtained and cord had 3 vessels . Placenta was delivered spontaneously and appeared intact and complete. Intrauterine cavity was rubbed with a laparotomy sponge. Uterine incision was closed in 2 layers using running stitches of No1 Monocryl. Hemostasis appeared secure. Ovaries and Fallopian tubes were within normal limits. Announcing needle, lap sponge and instrument count to be correct abdomen was closed in layers as follows: Peritoneum and Recti muscles with running stitches of 2-0 Vicryl. Fascia with running stitch of No 1 PDS. Subcutaneous tissue with running stitches of 2-0 Monocryl and skin was closed using jaqui. Patient tolerated the procedure well and was transferred to [facility] in good condition. CHAGO COFFEY MD Dec 03, 2018 16:20
[2018-12-03] MEDS ORDERED: KETOROLAC 30 MG INJ IV STA (16:21)
[2018-12-03] MEDS ORDERED: ONDANSETRON 4 MG INJ IV PRN (16:30)
[2018-12-03] MEDS ORDERED: DIPHENHYDRAMINE 50 MG INJ IV PRN (16:30)
[2018-12-03] MEDS ORDERED: NALOXONE (0.4 MG/ML) INJ IV PRN (16:30)
[2018-12-03] MEDS: OXYTOCIN 30 UNITS/LR 500 ML IV SCH ×2 (16:39→18:07)
[2018-12-03] MEDS: morphine 2 MG INJ IV PRN ×2 (17:45→22:41)
[2018-12-03 19:40] VITALS: BP 128/60; PULSE 86; RESP 18
[2018-12-03] MEDS ORDERED: LACTATED RINGER'S 1,000 ML IV SCH (19:40)
[2018-12-03] MEDS ORDERED: NA PHOSPHATE/BIPHOS 133 ML ENEMA PR PRN (20:00)
[2018-12-03] MEDS: KETOROLAC 30 MG INJ IV PRN (21:05)
[2018-12-03] MEDS: SENNA/DOCUSATE NA (8.6MG/50MG) TAB PO SCH (21:06)
[2018-12-03] MEDS ORDERED: ROPIVACAINE 0.2% 100 ML INJ EPI SCH (21:30)
[2018-12-03] MEDS: CEFAZOLIN 2 GM/50 ML (PMX) 50 ML IVPB SCH (22:40)
[2018-12-04 00:10] VITALS: BP 121/62; PULSE 82; RESP 18
[2018-12-04] MEDS: CLINDAMYCIN 300 MG CAP PO SCH ×4 (01:07→17:30)
[2018-12-04] MEDS: KETOROLAC 30 MG INJ IV PRN ×3 (02:51→14:10)
[2018-12-04 04:00] VITALS: BP 118/60; PULSE 86; RESP 18
[2018-12-04] MEDS: CEFAZOLIN 2 GM/50 ML (PMX) 50 ML IVPB SCH ×2 (06:21→14:16)
[2018-12-04] MEDS: morphine 2 MG INJ IV PRN (06:21)
[2018-12-04 08:30] VITALS: BP 105/55; PULSE 93; RESP 18
[2018-12-04] MEDS: SENNA/DOCUSATE NA (8.6MG/50MG) TAB PO SCH ×2 (08:32→21:34)
[2018-12-04] MEDS ORDERED: BISACODYL 10 MG SUPP PR ONE (10:30)
[2018-12-04] MEDS: HYDROCODONE/APAP (5/325) TAB PO PRN ×2 (15:06→18:48)
[2018-12-04 16:11] VITALS: BP 110/62; PULSE 88; RESP 18
--- NOTE | 2018-12-04 16:46 | PN ---
Date/Time of Note Date/Time of Note DATE: 12/04/18 TIME: 16:45 Assessment/Plan VTE Prophylaxis VTE Prophylaxis Intervention: ambulation Lines/Catheters IV Catheter Type (from Nrsg): Peripheral IV Assessment/Plan Assessment/Plan Status post postop day 1 Continue to monitor vital signs and advance diet and continue to ambulate patient We will discuss early discharge Subjective 24 Hr Interval Summary No bowel movement but passing flatus Constitutional: no complaints, improved, ambulates, BM, flatus, urine output Pain Control: well controlled Exam/Review of Systems Vital Signs Vitals Vital Signs Date Temp Pulse Resp B/P (MAP) Pulse Ox O2 O2 Flow FiO2 Time Delivery Rate 12/04/18 98.3 88 18 110/62 Room Air 16:11 (78) 12/04/18 98 04:00 Intake and Output 12/03/18 12/03/18 12/04/18 1515:00 23:00 07:00 IntakeIntake Total 1000 ml 1250 ml 100 ml OutputOutput Total 1300 ml 850 ml BalanceBalance 1000 ml -50 ml -750 ml Exam Free Text/Dictation Abdomen is soft and nontender Incision is covered Bowel sounds are present and abdomen does not seem distended Constitutional: alert, oriented, well developed Psych: no complaints, nl mood/affect Head: normocephalic, atraumatic Eyes: nl conjunctiva, EOMI, nl lids, nl sclera ENMT: nl external ears & nose, nl lips & teeth, nl nasal mucosa & septum, mucosa pink and moist Neck: supple, non-tender Respiratory: clear to auscultation, normal air movement Cardiovascular: regular rate and rhythm, nl pulses Gastrointestinal: soft, nl liver, spleen, non-tender Musculoskeletal: nl extremities to inspection, nl gait and stance Extremities: normal pulses 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
[2018-12-04 19:50] VITALS: BP 108/60; PULSE 84; RESP 18
[2018-12-04] MEDS: IBUPROFEN 800 MG TAB PO SCH (21:34)
[2018-12-04] MEDS: OXYCODONE/ACETAMINOPHEN (5/325) TAB PO PRN (22:05)
[2018-12-05] MEDS: CLINDAMYCIN 300 MG CAP PO SCH ×4 (00:14→17:16)
[2018-12-05] MEDS: LANOLIN HPA 1 PKT TOP PRN ×2 (00:14→08:14)
[2018-12-05] MEDS: OXYCODONE/ACETAMINOPHEN (5/325) TAB PO PRN ×4 (03:00→20:18)
[2018-12-05 03:46] VITALS: BP 106/53; PULSE 80; RESP 18
[2018-12-05] MEDS: IBUPROFEN 800 MG TAB PO SCH ×3 (05:31→22:18)
[2018-12-05 08:00] VITALS: BP 107/52; PULSE 72; RESP 18
[2018-12-05] MEDS: SENNA/DOCUSATE NA (8.6MG/50MG) TAB PO SCH ×2 (08:14→20:18)
--- NOTE | 2018-12-05 15:11 | DS ---
Date/Time of Note Date/Time of Note Home today or next day DATE: 12/05/18 TIME: 15:10 Obstetrical Discharge Record Final Diagnosis Final Diagnosis: Term delivered Other Final Diagnosis Status post vaginal delivery Section Section: Repeat Condition on Discharge Physical Assessment Last Vitals: See nurse's notes Voiding: Yes Bowel Movement: Yes Breast: Soft, non-tender, Filling Fundus: Firm Abdomen and Incision: Abdomen is soft with present bowel sounds Incision is healing well without induration and no erythema Calf Tenderness: No Patient Condition: Good CHAGO COFFEY MD Dec 05, 2018 15:11
[2018-12-05] MEDS ORDERED: ACET325T33 PO ×2 (15:13→15:37)
--- NOTE | 2018-12-05 15:13 | DS ---
Date/Time of Note Date/Time of Note DATE: 12/05/18 TIME: 15:11 Discharge Summary Admission/Discharge Info Admit Date/Time Dec 03, 2018 at 12:42 Discharge Date/Time December 05 Floropryl first 2018 Discharge Diagnosis Status post repeat Patient Condition: Serious Procedures Repeat delivery Hx of Present Illness 23-year-old female underwent elective repeat section Hospital Course Uncomplicated Home Meds Reported Medications [id number] ( 19) 1 Each Tablet, 1 TAB PO DAILY, TAB 10/21/18 Vit-Iron Fumarate-FA ( Tablet) 1 Each Tablet, 1 EACH BU DAILY 05/17/13 Follow-up Plan 2-3 days in clinic for staple removal Primary Care Provider Not On Staff Doctor Time spent on discharge: > 30 minutes Pending Labs Laboratory Tests Test 12/05/18 07:16 Hepatitis B Surface Antigen NEGATIVE (NEGATIVE) CHAGO COFFEY MD Dec 05, 2018 15:13
[2018-12-05] MEDS ORDERED: IBUP800T48 PO ×2 (15:14→15:36)
--- NOTE | 2018-12-05 15:16 | PD.PPDC ---
HAND [employer] Discharge Instruction Provider Information Physician Information 23-year-old female had repeat Diagnosis [id number] Final Diagnosis: Jissu7b Status post Condition [id number] Patient Condition: Uiwlt0j Good Diet [id number] Diet: Rruqc5v Resume Regular Diet Activity/Restrictions Newnx1Zy Activity: Glxvl1s May Shower Diodq2Ek Restrictions: Sfwuk8e No Exercising No Lifting Nothing in the Vagina Thiry8Wg Return to Work or School: Kcxrp7m January 31, 2019 Wound/Drain Care Instructions Ryugi3Ou Wound/Drain Care Instructions: Zxgfd5e Keep clean and dry Follow-up Follow-up with Physician: 2, 3, Day/Days (In clinic for staple removal) Return to clinic for Tiboo3Vk MEDICATION AID Instructions: Xvtik0b Fever greater than 101 Chills Gwzam6Vs OB Instructions: Godej7v Breast Tenderness Depression Comment: Pelvic rest no hard activity for 2 months Fmope5Av Surgical Instructions: Zctyz4o Incisional Drainage Incisional Redness CHAGO COFFEY MD Dec 05, 2018 15:16
[2018-12-05] MEDS ORDERED: ACETAMINOPHEN 325 MG TAB PO SCH (15:30)
[2018-12-05 15:35] VITALS: BP 113/59; PULSE 76; RESP 18
[2018-12-05] MEDS: ACETAMINOPHEN 325 MG TAB PO SCH ×2 (16:00→22:00)
[2018-12-05 20:10] VITALS: BP 118/68; PULSE 83; RESP 18
[2018-12-06] MEDS: CLINDAMYCIN 300 MG CAP PO SCH ×3 (00:34→11:41)
[2018-12-06] MEDS: HYDROCODONE/APAP (5/325) TAB PO PRN (00:42)
[2018-12-06] MEDS: ACETAMINOPHEN 325 MG TAB PO SCH ×3 (04:00→16:00)
[2018-12-06 04:05] VITALS: BP 119/61; PULSE 77; RESP 18
[2018-12-06] MEDS: IBUPROFEN 800 MG TAB PO SCH ×2 (05:31→14:54)
[2018-12-06 07:30] VITALS: BP 118/58; PULSE 67; RESP 18
[2018-12-06] MEDS ORDERED: DIPHTH/TET/ACEL PERTUSS (ADULT) 0.5 ML VIAL IM* ONE (09:00)
[2018-12-06] MEDS ORDERED: MEASLES,MUMPS,RUBELLA VACCINE INJ SC* ONE (09:00)
[2018-12-06] MEDS: SENNA/DOCUSATE NA (8.6MG/50MG) TAB PO SCH (10:05)
[2018-12-06] MEDS: OXYCODONE/ACETAMINOPHEN (5/325) TAB PO PRN (10:05)
--- NOTE | 2018-12-07 16:19 | DELSUM ---
Delivery Summary A-C Datetime Report Generated by CPN: 12/07/2018 16:19 DELIVERY PERSONNEL Barrel Drainer: Sebunnya, Phoebe MATERNAL INFORMATION Delivery Anesthesia: Spinal Medications in Delivery: SEE ANESTHESIA RECORD Delivery QBL (ml): 600 Placenta Cultured: No Maternal Complications: None RN Comments: E NAHED LABOR SUMMARY EDC: 12/09/2018 00:00 No. Babies in Womb: 1 Attempted: No Labor Anesthesia: None LABOR INFORMATION Reason for Induction: Not Applicable Oxytocin: N/A Group B Beta Strep: Negative Antibiotics # of Doses: 2 Antibiotics Time of Last Dose: 12/03/2018 15:10 Steroids Given: Full Course Reason Steroids Not Administered: Indication MEMBRANES Membranes Rupture Method: Artificial Rupture of Membranes: 12/03/2018 15:27 Length of Rupture (hr): 0.00 Amniotic Fluid Color: Clear Amniotic Fluid Amount: Moderate Amniotic Fluid Odor: Normal STAGES OF LABOR Stage 3 hr: 0 Stage 3 min: 1 CSECTION DELIVERY Primary Indication: Repeat Elective Secondary Indication: Repeat Elective CSection Urgency: Elective CSection Incidence: Repeat Labor: N/A Elective: Elective CSection Incision: Lower Uterine Transverse BABY A INFORMATION Infant Delivery Date/Time: 12/03/2018 15:27 Method of Delivery: Born in Route : No : N/A Forceps: N/A Vacuum Extraction: N/A Shoulder Dystocia : N/A SHOULDER DYSTOCIA BABY A Infant Delivery Date/Time: 12/03/2018 15:27 PRESENTATION/POSITION BABY A Presentation: BREECH Cephalic Presentation: NA Vertex Position: NA Breech Presentation: Jerry PLACENTA INFORMATION BABY A Placenta Delivery Time : 12/03/2018 15:28 Placenta Method of Delivery: Manual Removal Placenta Status: Delivered SCORES BABY A Heart Rate 1 min: >100 bpm Resp Effort 1 min: Slow, Irregular Reflex Irritability 1 min: Cough/Sneeze/Pulls Away Muscle Tone 1 min: Active Motion Color 1 min: Body [place], Extremit Blue Resuscitation Effort 1 min: Tactile Stimulation SCORE 1 MIN: 8 Heart Rate 5 min: >100 bpm Resp Effort 5 min: Good Cry Reflex Irritability 5 min: Cough/Sneeze/Pulls Away Muscle Tone 5 min: Active Motion Color 5 min: Body [place], Extremit Blue Resuscitation Effort 5 min: Tactile Stimulation SCORE 5 MIN: 9 INFANT INFORMATION BABY A Gestational Age at Delivery: 39.1 Gestational Status: Full Term- 39- 40.6 Weeks Infant Outcome : Liveborn Condition : Stable Infant Sex: Male IDENTIFICATION/MEDS BABY A ID Band Number: [id number] ID Band Location: Right Leg; Left Arm Sensor Number: [id number] Sensor Location : Cord Clamp Vitamin K Given : Not Given Erythromycin Given: Not Given WEIGHT/LENGTH BABY A Infant Birthweight (gm): 3795 Weight (lb): 8 Weight (oz): 6 Infant Length (in): 20.00 Infant Length (cm): 50.80 CORD INFORMATION BABY A No. Cord Vessels: 3 Nuchal Cord : N/A Nuchal Cord- Other: 0 True Knot: 0 Cord Blood Taken: Yes Banking/Donate Info: NO Suction: Mouth; Nose ASSESSMENT BABY A Complications: None Physical Findings at Delivery: Within Normal Limits Infant Respirations: Appears Normal Catering Server/ALS Called : No Infant Care By: NAHED MATHIS Transferred To: Remains with Mother
== END 2018-12-06 16:10 | disposition home or self-care (01) | DRG 788 ==
LOC: L-D 12:42 → PP1 19:03
PROVIDERS: ADMIT Obstetrics & Gynecology; ATTEND Obstetrics & Gynecology
PROC: 10D00Z1 Extraction of Products of Conception, Low, Open Approach (ICD-10-PCS; principal; 2018-12-03 12:30)
DX: O34.211 Maternal care for low transverse scar from previous cesarean delivery (principal); O32.1XX0 Maternal care for breech presentation, not applicable or unspecified; Z3A.39 39 weeks gestation of pregnancy; Z37.1 Single stillbirth
CPT/HCPCS: 80053; 80307; 81001; 85025; 85384; 85610; 85730; 86592; 86850; 86900; 86901; 87340; 99464; J0690; J1885; J2210; J2270; J2274; J2405; J2590; J2795; J3010; J7120